=== PATIENT | female | born 1955 | race Caucasian/White ===

== ENCOUNTER 2017-02-13 23:13 | Inpatient (IN) | payer MEDICARE, OTHER ==
[~2017-02-13] VITALS: Ht 170.2 cm; Wt 61.2 kg
[2017-02-13] MEDS ORDERED: LORAZEPAM 2 MG/1 ML VIAL IM ONE (23:45)
[2017-02-13] MEDS ORDERED: HALOPERIDOL LACTATE 5 MG/1 ML VIAL IM ONE (23:45)
[2017-02-13 23:50] VITALS: BP 126/68
[2017-02-13] MEDS ORDERED: HALOPERIDOL LACTATE 5 MG/1 ML VIAL ONE (23:54)
[2017-02-13] MEDS ORDERED: LORAZEPAM 2 MG/1 ML VIAL ONE (23:55)
[2017-02-14] MEDS ORDERED: TEMAZEPAM 7.5 MG CAPSULE PO PRN (00:15)
[2017-02-14] MEDS ORDERED: MAGNESIUM HYDROXIDE 30 ML LIQUID UDC PO PRN (00:15)
[2017-02-14 07:30] VITALS: BP 133/79
[2017-02-14] MEDS ORDERED: no home medications (10:21)
[2017-02-14] MEDS: CLONAZEPAM 0.5 MG TABLET PO PRN (12:08)
[2017-02-14] MEDS ORDERED: IBUP-1955 PO (13:27)
[2017-02-14] MEDS ORDERED: MAG30ORA PO (13:29)
[2017-02-14] MEDS ORDERED: HYDR25TA4 PO (13:30)
[2017-02-14] MEDS ORDERED: AMLO10TA2 PO (13:30)
[2017-02-14] MEDS ORDERED: CALC1TAB30 PO (13:31)
[2017-02-14] MEDS ORDERED: THIA100T74 PO (13:32)
[2017-02-14] MEDS ORDERED: DOCU-170 PO (13:33)
[2017-02-14] MEDS ORDERED: OMEP20CA10 PO (13:34)
[2017-02-14] MEDS ORDERED: MONT10TA22 PO (13:36)
[2017-02-14] MEDS ORDERED: FOLI1TAB16 PO (13:36)
[2017-02-14] MEDS: LITHIUM CARBONATE 300 MG TABLET PO SCH ×2 (13:40→20:00)
[2017-02-14] MEDS: ZIPRASIDONE 20 MG CAPSULE PO SCH ×2 (13:40→20:00)
[2017-02-14] MEDS ORDERED: FAMO20TA8 PO (13:42)
[2017-02-14] MEDS ORDERED: LORA-114 PO (13:43)
[2017-02-14] MEDS ORDERED: MULT-70 PO (13:44)
[2017-02-14] MEDS ORDERED: GEMF600T3 PO (13:44)
[2017-02-14] MEDS ORDERED: MEGE400O PO (13:48)
[2017-02-14 15:13] VITALS: BP 125/66
[2017-02-14] MEDS ORDERED: GUAIFENESIN/DEXTROMETHORPHAN 5 ML UDC PO PRN (15:45)
[2017-02-14] MEDS: CALCIUM CARB/VITAMIN D 500MG-200UNITS TABLET PO SCH (18:11)
[2017-02-14] MEDS: IBUPROFEN 600 MG TABLET PO SCH (18:12)
[2017-02-14] MEDS: FAMOTIDINE 20 MG TABLET PO SCH (18:12)
[2017-02-14 20:00] VITALS: BP 126/67
[2017-02-14] MEDS: DOCUSATE SODIUM 250 MG CAPSULE PO SCH (20:00)
[2017-02-14] MEDS: MIRTAZAPINE 15 MG TABLET PO SCH (20:00)
[2017-02-14] MEDS ORDERED: DOCUSATE SODIUM 100 MG CAPSULE PO SCH (21:00)
[2017-02-15 07:30] VITALS: BP 123/67
[2017-02-15 08:01] LABS: BASOPHILS % (AUTO) 0.4 % (0.0-2.0); EOSINOPHILS # (AUTO) 0.1 K/uL (0.0-0.7); EOSINOPHILS % (AUTO) 2.2 % (0.0-7.0); HEMATOCRIT 35.7 % (37-47); HEMOGLOBIN 12.4 G/DL (12.0-16.0); LYMPHOCYTES # (AUTO) 1.5 K/uL (20.0-40.0); LYMPHOCYTES % (AUTO) 28.6 % (20.5-51.5); MEAN CORPUSCULAR HEMOGLOBIN 33.5 UUG (27.0-31.0); MEAN CORPUSCULAR HGB CONC 35 g/dL (32.0-37.0); MEAN CORPUSCULAR VOLUME 96.6 FL (81.0-99.0); MONOCYTES # (AUTO) 0.3 K/uL (2.0-10.0); NEUTROPHILS # (AUTO) 3.3 K/uL (1.8-8.9); NEUTROPHILS % (AUTO) 63.8 % (38.5-71.5); PLATELET COUNT (AUTO) 323 K/UL (150-450); RED CELL DISTRIBUTION WIDTH 12.3 % (11.5-14.5); WHITE BLOOD COUNT (AUTO) 5.2 K/UL (4.0-11.2)
[2017-02-15 08:21] LABS: ALBUMIN 3.4 g/dL (3.4-5.0); BILIRUBIN,TOTAL 0.2 mg/dL (0.2-1.0); CALCIUM 9.2 mg/dL (8.5-10.1); CREATININE 0.7 mg/dL (0.6-1.3); MAGNESIUM 2.4 mg/dL (1.8-2.4); PHOSPHOROUS 3.7 mg/dL (2.5-4.9); POTASSIUM 3.2 mmol/L (3.5-5.1); TOTAL PROTEIN, SERUM 6.7 g/dL (6.4-8.2)
[2017-02-15 08:26] LABS: THYROID STIMULATING HORMONE 0.785 mIU/mL (0.358-3.740)
[2017-02-15] MEDS: MEGESTROL ACETATE 20 MG TABLET PO SCH (08:37)
[2017-02-15] MEDS: THIAMINE HCL 100 MG TABLET PO SCH (08:38)
[2017-02-15] MEDS: MULTIVITAMINS,THERAPEUTIC TABLET PO SCH (08:38)
[2017-02-15] MEDS: FOLIC ACID 1 MG TABLET PO SCH (08:38)
[2017-02-15] MEDS: LITHIUM CARBONATE 300 MG TABLET PO SCH ×2 (08:38→20:03)
[2017-02-15] MEDS: ZIPRASIDONE 20 MG CAPSULE PO SCH ×2 (08:39→20:03)
[2017-02-15] MEDS: MONTELUKAST SODIUM 10 MG TABLET PO SCH (08:40)
[2017-02-15] MEDS: FAMOTIDINE 20 MG TABLET PO SCH ×2 (08:40→17:42)
[2017-02-15] MEDS: CALCIUM CARB/VITAMIN D 500MG-200UNITS TABLET PO SCH ×3 (08:40→17:43)
[2017-02-15] MEDS: IBUPROFEN 600 MG TABLET PO SCH ×3 (08:40→17:42)
[2017-02-15] MEDS: LORATADINE 10 MG TABLET PO SCH (08:40)
[2017-02-15] MEDS ORDERED: Medication Not On Formulary EA (Multivitamins (Multivitamin) 1 TAB) PO SCH (09:00)
[2017-02-15] MEDS ORDERED: POTASSIUM CHLORIDE 20 MEQ TAB.PRT.SR PO ONE (10:00)
[2017-02-15] MEDS ORDERED: MAGNESIUM HYDROXIDE 30 ML LIQUID UDC PO ONE (10:00)
[2017-02-15] MEDS: AMLODIPINE 10 MG TABLET PO SCH (11:42)
[2017-02-15] MEDS: DOCUSATE SODIUM 100 MG CAPSULE PO SCH ×2 (11:42→20:03)
[2017-02-15] MEDS: CLONAZEPAM 0.5 MG TABLET PO PRN (12:16)
[2017-02-15 15:14] VITALS: BP 126/81
[2017-02-15] MEDS: HYDROCHLOROTHIAZIDE 25 MG TABLET PO SCH (17:46)
[2017-02-15] MEDS: MIRTAZAPINE 15 MG TABLET PO SCH (20:03)
[2017-02-15 20:29] VITALS: BP 113/76
[2017-02-15] MEDS: DOCUSATE SODIUM 250 MG CAPSULE PO SCH (21:00)
[2017-02-16] MEDS: CLONAZEPAM 0.5 MG TABLET PO PRN (06:00)
[2017-02-16 07:53] VITALS: BP 106/63
[2017-02-16] MEDS: THIAMINE HCL 100 MG TABLET PO SCH (08:27)
[2017-02-16] MEDS: DOCUSATE SODIUM 100 MG CAPSULE PO SCH (08:28)
[2017-02-16] MEDS: MEGESTROL ACETATE 20 MG TABLET PO SCH (08:28)
[2017-02-16] MEDS: IBUPROFEN 600 MG TABLET PO SCH ×3 (08:28→17:04)
[2017-02-16] MEDS: LITHIUM CARBONATE 300 MG TABLET PO SCH ×2 (08:28→20:35)
[2017-02-16] MEDS: LORATADINE 10 MG TABLET PO SCH (08:28)
[2017-02-16] MEDS: FOLIC ACID 1 MG TABLET PO SCH (08:28)
[2017-02-16] MEDS: MONTELUKAST SODIUM 10 MG TABLET PO SCH (08:29)
[2017-02-16] MEDS: ZIPRASIDONE 20 MG CAPSULE PO SCH ×2 (08:29→20:35)
[2017-02-16] MEDS: MULTIVITAMINS,THERAPEUTIC TABLET PO SCH (08:29)
[2017-02-16] MEDS: CALCIUM CARB/VITAMIN D 500MG-200UNITS TABLET PO SCH ×3 (08:29→17:04)
[2017-02-16] MEDS: FAMOTIDINE 20 MG TABLET PO SCH ×2 (08:29→17:04)
[2017-02-16] MEDS: HYDROCHLOROTHIAZIDE 25 MG TABLET PO SCH (08:35)
[2017-02-16] MEDS: AMLODIPINE 10 MG TABLET PO SCH (08:36)
[2017-02-16] MEDS ORDERED: BISACODYL 10 MG SUPP.RECT RC PRN (11:30)
[2017-02-16] MEDS ORDERED: BISACODYL 10 MG SUPP.RECT RC ONE (11:30)
[2017-02-16 15:38] VITALS: BP 110/71
[2017-02-16] MEDS: MAG HYDROX/AL HYDROX/SIMETH 30 ML LIQUID UDC PO PRN ×2 (16:16→20:34)
[2017-02-16 19:32] LABS: *BILIRUBIN,URIN NEGATIVE (NEGATIVE); *BLOOD, URINE NEGATIVE (NEGATIVE); *CLARITY,URINE SLIGHTLY CLOUDY (CLEAR); *COLOR,URINE YELLOW (YELLOW); *KETONES,URINE NEGATIVE (NEGATIVE); *PROTEIN,URINE NEGATIVE (NEGATIVE); *UROBILINOGEN,URINE 0.2 E.U./dl (NORMAL); LEUKOCYTE ESTERASE ,URINE 1+ (NEGATIVE); NITRITE, URINE NEGATIVE (NEGATIVE); UGLUCOSE NEGATIVE (NEGATIVE)
[2017-02-16 19:39] LABS: BACTERIA,URINE FEW /HPF (NONE SEEN); RBC,URINE 0-3 /HPF (0-3); SQUAMOUS EPITHELIAL CELL,UR MODERATE /HPF (NONE SEEN)
[2017-02-16] MEDS: DOCUSATE SODIUM 250 MG CAPSULE PO SCH (20:34)
[2017-02-16] MEDS: MIRTAZAPINE 15 MG TABLET PO SCH (20:35)
[2017-02-16 20:50] VITALS: BP 123/80
[2017-02-17 07:30] VITALS: BP 111/98
[2017-02-17] MEDS: MONTELUKAST SODIUM 10 MG TABLET PO SCH (08:09)
[2017-02-17] MEDS: ZIPRASIDONE 20 MG CAPSULE PO SCH ×2 (08:09→20:10)
[2017-02-17] MEDS: IBUPROFEN 600 MG TABLET PO SCH ×3 (08:09→16:09)
[2017-02-17] MEDS: LORATADINE 10 MG TABLET PO SCH (08:09)
[2017-02-17] MEDS: MULTIVITAMINS,THERAPEUTIC TABLET PO SCH (08:09)
[2017-02-17] MEDS: CALCIUM CARB/VITAMIN D 500MG-200UNITS TABLET PO SCH ×3 (08:09→16:09)
[2017-02-17] MEDS: FOLIC ACID 1 MG TABLET PO SCH (08:10)
[2017-02-17] MEDS: FAMOTIDINE 20 MG TABLET PO SCH ×2 (08:10→16:09)
[2017-02-17] MEDS: LITHIUM CARBONATE 300 MG TABLET PO SCH ×2 (08:10→20:10)
[2017-02-17] MEDS: MEGESTROL ACETATE 20 MG TABLET PO SCH (08:10)
[2017-02-17] MEDS: HYDROCHLOROTHIAZIDE 25 MG TABLET PO SCH (08:10)
[2017-02-17] MEDS: THIAMINE HCL 100 MG TABLET PO SCH (08:10)
[2017-02-17] MEDS: AMLODIPINE 10 MG TABLET PO SCH (08:11)
[2017-02-17] MEDS: CEPHALEXIN MONOHYDRATE 500 MG CAPSULE PO SCH ×2 (11:06→20:10)
[2017-02-17 15:40] VITALS: BP 118/71
[2017-02-17] MEDS: CLONAZEPAM 0.5 MG TABLET PO PRN (16:13)
[2017-02-17 20:00] VITALS: BP 139/84
[2017-02-17] MEDS: DOCUSATE SODIUM 250 MG CAPSULE PO SCH (20:10)
[2017-02-17] MEDS: MIRTAZAPINE 15 MG TABLET PO SCH (20:10)
[2017-02-18] MEDS: ACETAMINOPHEN 325 MG TABLET PO PRN ×2 (06:08→22:25)
[2017-02-18 07:30] VITALS: BP 126/66
[2017-02-18] MEDS: ZIPRASIDONE 20 MG CAPSULE PO SCH ×2 (08:21→20:05)
[2017-02-18] MEDS: MEGESTROL ACETATE 20 MG TABLET PO SCH (08:22)
[2017-02-18] MEDS: MULTIVITAMINS,THERAPEUTIC TABLET PO SCH (08:22)
[2017-02-18] MEDS: CEPHALEXIN MONOHYDRATE 500 MG CAPSULE PO SCH ×2 (08:22→20:05)
[2017-02-18] MEDS: CALCIUM CARB/VITAMIN D 500MG-200UNITS TABLET PO SCH ×3 (08:22→16:32)
[2017-02-18] MEDS: IBUPROFEN 600 MG TABLET PO SCH ×3 (08:22→16:32)
[2017-02-18] MEDS: THIAMINE HCL 100 MG TABLET PO SCH (08:22)
[2017-02-18] MEDS: LITHIUM CARBONATE 300 MG TABLET PO SCH ×2 (08:22→20:05)
[2017-02-18] MEDS: MONTELUKAST SODIUM 10 MG TABLET PO SCH (08:22)
[2017-02-18] MEDS: FAMOTIDINE 20 MG TABLET PO SCH ×2 (08:22→16:32)
[2017-02-18] MEDS: FOLIC ACID 1 MG TABLET PO SCH (08:22)
[2017-02-18] MEDS: LORATADINE 10 MG TABLET PO SCH (08:22)
[2017-02-18 08:23] LABS: BASOPHILS % (AUTO) 0.4 % (0.0-2.0); EOSINOPHILS # (AUTO) 0.2 K/uL (0.0-0.7); EOSINOPHILS % (AUTO) 2.2 % (0.0-7.0); HEMATOCRIT 39.1 % (37-47); HEMOGLOBIN 13.2 G/DL (12.0-16.0); LYMPHOCYTES # (AUTO) 1.7 K/uL (20.0-40.0); LYMPHOCYTES % (AUTO) 22.6 % (20.5-51.5); MEAN CORPUSCULAR HEMOGLOBIN 32.6 UUG (27.0-31.0); MEAN CORPUSCULAR HGB CONC 34 g/dL (32.0-37.0); MEAN CORPUSCULAR VOLUME 96.2 FL (81.0-99.0); MONOCYTES # (AUTO) 0.4 K/uL (2.0-10.0); MONOCYTES % (AUTO) 5.7 % (0.0-11.0); NEUTROPHILS # (AUTO) 5.2 K/uL (1.8-8.9); NEUTROPHILS % (AUTO) 69.1 % (38.5-71.5); PLATELET COUNT (AUTO) 321 K/UL (150-450); RED BLOOD CELL COUNT(AUTO) 4.06 MIL/UL (4.2-5.4); RED CELL DISTRIBUTION WIDTH 12.1 % (11.5-14.5)
[2017-02-18] MEDS: AMLODIPINE 10 MG TABLET PO SCH (08:23)
[2017-02-18] MEDS: HYDROCHLOROTHIAZIDE 25 MG TABLET PO SCH (08:23)
[2017-02-18 08:25] LABS: WHITE BLOOD COUNT (AUTO) 7.5 K/UL (4.0-11.2)
[2017-02-18 08:36] LABS: ALBUMIN 3.8 g/dL (3.4-5.0); BILIRUBIN,TOTAL 0.2 mg/dL (0.2-1.0); CALCIUM 9.6 mg/dL (8.5-10.1); CREATININE 0.8 mg/dL (0.6-1.3); MAGNESIUM 2.2 mg/dL (1.8-2.4); PHOSPHOROUS 4.6 mg/dL (2.5-4.9); POTASSIUM 4.3 mmol/L (3.5-5.1); TOTAL PROTEIN, SERUM 7.1 g/dL (6.4-8.2)
[2017-02-18 15:33] VITALS: BP 108/61
[2017-02-18 20:00] VITALS: BP 128/81
[2017-02-18] MEDS: DOCUSATE SODIUM 250 MG CAPSULE PO SCH (20:06)
[2017-02-18] MEDS: MIRTAZAPINE 15 MG TABLET PO SCH (20:06)
[2017-02-18] MEDS: CLONAZEPAM 0.5 MG TABLET PO PRN (22:24)
[2017-02-19] MEDS: ACETAMINOPHEN 325 MG TABLET PO PRN (06:36)
[2017-02-19] MEDS: CLONAZEPAM 0.5 MG TABLET PO PRN (06:36)
[2017-02-19 07:30] VITALS: BP 118/81
[2017-02-19] MEDS: CALCIUM CARB/VITAMIN D 500MG-200UNITS TABLET PO SCH ×3 (08:10→16:47)
[2017-02-19] MEDS: CEPHALEXIN MONOHYDRATE 500 MG CAPSULE PO SCH ×2 (08:10→20:16)
[2017-02-19] MEDS: IBUPROFEN 600 MG TABLET PO SCH ×3 (08:11→16:47)
[2017-02-19] MEDS: LORATADINE 10 MG TABLET PO SCH (08:11)
[2017-02-19] MEDS: LITHIUM CARBONATE 300 MG TABLET PO SCH ×2 (08:11→20:16)
[2017-02-19] MEDS: AMLODIPINE 10 MG TABLET PO SCH (08:11)
[2017-02-19] MEDS: FAMOTIDINE 20 MG TABLET PO SCH ×2 (08:12→16:47)
[2017-02-19] MEDS: HYDROCHLOROTHIAZIDE 25 MG TABLET PO SCH (08:12)
[2017-02-19] MEDS: FOLIC ACID 1 MG TABLET PO SCH (08:12)
[2017-02-19] MEDS: ZIPRASIDONE 20 MG CAPSULE PO SCH ×2 (08:15→20:16)
[2017-02-19] MEDS: MONTELUKAST SODIUM 10 MG TABLET PO SCH (08:15)
[2017-02-19] MEDS: THIAMINE HCL 100 MG TABLET PO SCH (08:15)
[2017-02-19] MEDS: MEGESTROL ACETATE 20 MG TABLET PO SCH (08:16)
[2017-02-19] MEDS: MULTIVITAMINS,THERAPEUTIC TABLET PO SCH (08:16)
[2017-02-19 15:11] VITALS: BP 109/50
[2017-02-19] MEDS: MAG HYDROX/AL HYDROX/SIMETH 30 ML LIQUID UDC PO PRN (16:47)
[2017-02-19] MEDS: MIRTAZAPINE 15 MG TABLET PO SCH (20:16)
[2017-02-19] MEDS: DOCUSATE SODIUM 250 MG CAPSULE PO SCH (20:16)
[2017-02-19 20:33] VITALS: BP 118/80
[2017-02-20] MEDS: ACETAMINOPHEN 325 MG TABLET PO PRN ×2 (00:04→06:20)
[2017-02-20] MEDS: CLONAZEPAM 0.5 MG TABLET PO PRN (00:26)
[2017-02-20 07:30] VITALS: BP 114/76
[2017-02-20] MEDS: MULTIVITAMINS,THERAPEUTIC TABLET PO SCH (08:01)
[2017-02-20] MEDS: LITHIUM CARBONATE 300 MG TABLET PO SCH (08:01)
[2017-02-20] MEDS: FAMOTIDINE 20 MG TABLET PO SCH (08:01)
[2017-02-20] MEDS: HYDROCHLOROTHIAZIDE 25 MG TABLET PO SCH (08:01)
[2017-02-20 08:02] VITALS: BP 118/80
[2017-02-20] MEDS: LORATADINE 10 MG TABLET PO SCH (08:02)
[2017-02-20] MEDS: CEPHALEXIN MONOHYDRATE 500 MG CAPSULE PO SCH (08:02)
[2017-02-20] MEDS: THIAMINE HCL 100 MG TABLET PO SCH (08:02)
[2017-02-20] MEDS: IBUPROFEN 600 MG TABLET PO SCH ×2 (08:02→12:03)
[2017-02-20] MEDS: ZIPRASIDONE 20 MG CAPSULE PO SCH (08:02)
[2017-02-20] MEDS: CALCIUM CARB/VITAMIN D 500MG-200UNITS TABLET PO SCH ×2 (08:02→12:03)
[2017-02-20] MEDS: AMLODIPINE 10 MG TABLET PO SCH (08:02)
[2017-02-20] MEDS: MEGESTROL ACETATE 20 MG TABLET PO SCH (08:03)
[2017-02-20] MEDS: MONTELUKAST SODIUM 10 MG TABLET PO SCH (08:03)
[2017-02-20] MEDS: FOLIC ACID 1 MG TABLET PO SCH (08:03)
[2017-02-20] MEDS: MAG HYDROX/AL HYDROX/SIMETH 30 ML LIQUID UDC PO PRN (14:25)
== END 2017-02-20 15:18 | DRG 885 ==
LOC: ER 23:16 → GPS 23:39
PROVIDERS: ADMIT Psychiatry & Neurology Psychiatry; ATTEND Internal Medicine
DX: F31.64 Bipolar disorder, current episode mixed, severe, with psychotic features (principal); N39.0 Urinary tract infection, site not specified; F29 Unspecified psychosis not due to a substance or known physiological condition; Z73.6 Limitation of activities due to disability; E87.6 Hypokalemia; F12.10 Cannabis abuse, uncomplicated; I10 Essential (primary) hypertension; F41.9 Anxiety disorder, unspecified; K59.00 Constipation, unspecified; F19.90 Other psychoactive substance use, unspecified, uncomplicated; R91.8 Other nonspecific abnormal finding of lung field
CPT/HCPCS: 36415; 70030-TC; 71010; 74000; 83735; 84100; 84443; 85025; 87086; 93005; 97001; A4663; J1630; J2060